=== PATIENT | female | born 1990 | race African-American/Black ===

== ENCOUNTER → 2017-06-05 | Outpatient (CLI) | payer BC ==
[~2017-06-05] MED LIST: BCP
== END ==
LOC: COL.RAD 09:43
DX: S83.512A Sprain of anterior cruciate ligament of left knee, initial encounter (principal); S82.142A Displaced bicondylar fracture of left tibia, initial encounter for closed fracture; M25.462 Effusion, left knee; S86.812A Strain of other muscle(s) and tendon(s) at lower leg level, left leg, initial encounter

== ENCOUNTER 2023-12-14 18:08 | Inpatient (IN) | payer OTHER ==
[2023-12-13 22:30] VITALS: BP 105/57; PULSE 82
[~2023-12-14] VITALS: Ht 160 cm; Wt 80.5 kg
[2023-12-14] VITALS (8 sets, daily range): BP systolic 105–148; BP diastolic 53–78; PULSE 67–91; TEMP 98.2–98.4
--- NOTE | 2023-12-14 18:20 | NUR ---
1820 PT AMBULATORY TO UNIT WITH SIGNIFICANT OTHER. STOPPED THREE TIMES ON THE WAY DUE TO CTX. PT CHANGED INTO GOWN AND COMFORTABLE IN BED. THIS RN AT BEDSIDE TO PLACE TOCO AND EFM. PT VISIBLY UNCOMFORTABLE DURING A CTX. EFM TRACING CAT I. TRACING CTX EVERY 3-4 MINUTES. PT REPORTS COMING FOR CTX AND REPORTS FEELING THEM EVERY 3 MINUTES. PT REPORTS FEELING BABY MOVE TODAY. PT DENIES LOF AND DENIES VAGINAL BLEEDING. SVE BY THIS RN. /2. 1830[facility] AND CARE ASSUMED.
[2023-12-14] MEDS ORDERED: Penicillin G Potassium 5,000,000 UNITS in NS 100 ML IV ONE (18:45)
[2023-12-14] MEDS ORDERED: LR & Oxytocin 500 ML IV SCH (18:45)
[2023-12-14] MEDS ORDERED: LR 1,000 ML IV SCH (18:45)
[2023-12-14] MEDS ORDERED: PRENATAL TABLET PO (18:51)
[2023-12-14 19:01] LABS: HEMOGLOBIN 13.1 g/dl (12.5-16.0); MEAN CELL VOLUME 91 fl (80.0-100.0); MEAN CORPUSCULAR HEMOGLOBIN 31 pg (27-31); MEAN CORPUSCULAR HGB CONC 35 g/dl (33.0-37.0); MEAN PLATELET VOLUME 11.3 fl (7.4-10.4); PLATELET COUNT 262 K/mm3 (130-400); RED BLOOD COUNT 4.19 M/mm3 (4.10-5.30); REDCELL DISTRIBUTION WIDTH-CV 13.2 % (11.5-14.5)
[2023-12-14 19:30] LABS: ALBUMIN 3.1 gm/dL (3.5-5.0); BILIRUBIN,TOTAL 0.4 mg/dL (0.2-1.2); CALCIUM 9.9 mg/dL (8.4-10.2); CREATININE, serum 0.73 mg/dL (0.57-1.11); POTASSIUM 4.2 mmol/L (3.5-4.5); TOTAL PROTEIN 7.3 gm/dL (6.2-8.1)
[2023-12-14 19:49] LABS: BAND 9 % (0-10); LYMPHOCYTE 6 % (20.0-51.0); NEUTROPHILS 83 % (42.0-75.2); PLATELET ESTIMATE NORMAL (NORMAL)
--- NOTE | 2023-12-14 20:45 | NUR ---
PT REQUESTING INFORMATION R/T EPIDUAL. EDUCATION PROVIDED. PT AND SPOUSE VERBALIZE UNDERSTANDING. QUESTIONS ANSWERED. PT REQUEST TIME TO DISCUSS WITH SPOUSE.
[2023-12-14] MEDS ORDERED: ROPivacaine PF 0.2% 200 ML IV ONE (21:10)
--- NOTE | 2023-12-14 21:30 | NUR ---
2054: PATIENT REQUEST EPIDURAL. 2055: ANES NOTIFIED OF PT REQUEST 2109: IV FLUID BOLUS STARTED 2113: Shani MANLEY CRUSHED STONE GRADER AT [facility]. PT POSITIONED INTO SITTING POSITION WITH SPOUSE FOR SUPPORT. 2118: TIME OUT FOR EPIDURAL PLACEMENT 2126: SINGLE SHOT BY Shani MANLEY CRNA 2127: EPIDURAL CATH PLACED 2128: EPIDURAL TEST DOSE 2129: EPIDURAL PUMP STARTED.
[2023-12-14] MEDS ORDERED: ePHEDrine 50 MG/10 ML VIAL IV PRN (21:45)
[2023-12-14] MEDS ORDERED: Ondansetron 4 MG/2 ML VIAL IV PRN (21:45)
[2023-12-14] MEDS ORDERED: diphenhydrAMINE 25 MG CAP PO PRN (21:45)
[2023-12-14] MEDS ORDERED: diphenhydrAMINE 50 MG/ML 1 ML VIAL IV PRN (21:45)
[2023-12-14] MEDS ORDERED: Naloxone 0.4 MG/ML VIAL IV PRN (21:45)
[2023-12-14] MEDS ORDERED: Penicillin G Potassium 2,500,000 UNITS in NS 100 ML IV SCH (22:44)
--- NOTE | 2023-12-14 23:00 | NUR ---
SVE AND FSE PLACEMENT BY [place] [facility]. EDUCATED PROVIDED TO PATIENT PRIOR TO PLACEMENT. PT VERBALIZED UNDERSTANDING AND AGREED TO PROCEDURE.
[2023-12-14] MEDS ORDERED: ePHEDrine 50 MG/ML VIAL ONE (23:03)
[2023-12-15] VITALS (44 sets, daily range): BP systolic 103–150; BP diastolic 53–86; PULSE 71–140; TEMP 98.1–99
[2023-12-15] MEDS ORDERED: LR & Oxytocin 500 ML IV SCH (00:15)
--- NOTE | 2023-12-15 06:07 | NUR ---
FSE OFF DURING SVE BY DR. JENKINS. FSE #[address] JENKINS @ 0607.
[2023-12-15] MEDS ORDERED: miSOPROStol 200 MCG TAB RC ONE (09:00)
--- NOTE | 2023-12-15 09:21 | NUR ---
RN BEDSIDE; DISCUSSES POC WITH PT. PT VERBALIZES UNDERSTANDING AND HAS NO QUESTIONS AT THIS TIME
--- NOTE | 2023-12-15 09:28 | NUR ---
0775 ALICE NIEVES CALLED AND NOTIFIED OF RECENT SVE, RN ABLE TO REDUCE ANT LIP OF CERVIX WHEN PT PUSHING. ORDERS TO START PUSHING WITH PT AT THIS TIME AND MD STATES HE IS ON WAY TO HOSPITAL. RN RBVO. 0175 PT UPDATED ON POC, LAW CARE PROVIDED BY RN, PT IN [employer] [facility] [facility], NICOLE CATHETER REMOVED BY RN
--- NOTE | 2023-12-15 09:32 | NUR ---
RN REMAINS BEDSIDE ASSESSING STRIP AND PUSHING WITH PATIENT
--- NOTE | 2023-12-15 09:34 | NUR ---
0757 ALICE NIEVES BEDSIDE TO ASSESS PUSHING EFFORTS. 0800 ALICE NIEVES OUT OF ROOM; REMAINS ON UNIT
--- NOTE | 2023-12-15 09:37 | NUR ---
0829 RN CALLS DELIVERY TEAM AND TO ROOM FOR DELIVERY 0832 ALICE NIEVES BEDSIDE FOR DELIVERY 0838 OF VIABLE FEMALE
--- NOTE | 2023-12-15 09:46 | NUR ---
ALICE NIEVES, RNX3 BEDSIDE FOR SPONTANEOUS VAGINAL DELIVERY OF VIABLE INFANT AT 0838.
--- NOTE | 2023-12-15 09:51 | NUR ---
LAW CARE PERFORMED BY RN
[2023-12-15] MEDS ORDERED: oxyCODONE 5 MG TAB PO PRN (10:30)
[2023-12-15] MEDS ORDERED: Loratadine 10 MG TAB PO PRN (10:30)
[2023-12-15] MEDS ORDERED: Magnes Hydrox (MOM) 80 MG/ML 30 ML CUP PO PRN (10:30)
[2023-12-15] MEDS ORDERED: Witch Hazel 50% Pads Bulk TUB TP PRN (10:30)
[2023-12-15] MEDS ORDERED: Measles/Mumps/Rubella Virus Vaccine Live w Diluent 0.5 ML VIAL SQ SCH (10:30)
[2023-12-15] MEDS ORDERED: Ibuprofen 800 MG TAB PO SCH (10:30)
[2023-12-15] MEDS ORDERED: Mag/Al Hydrox/Simeth Susp 30 ML CUP PO PRN (10:30)
[2023-12-15] MEDS ORDERED: Naloxone 0.4 MG/ML VIAL IV PRN (10:30)
[2023-12-15] MEDS ORDERED: Phenylephrine/Mineral Oil/Petrolatum 57 GM TUBE RC PRN (10:30)
--- NOTE | 2023-12-15 11:41 | NUR ---
RN USES SIT TO STAND TO TAKE PT TO BATHROOM. PT UNABLE TO VOID AT THIS TIME, LAW CARE PROVIDED BY RN AND GOWN CHANGED. PT MOVED TO WHEELCHAIR AND MOVED TO ROOM WITH SPOUSE AND RN
--- NOTE | 2023-12-15 11:44 | NUR ---
RN ORIENTS PT AND SPOUSE TO ROOM AND PROVIDES EDUCATION PACKET AND POSTPARUM EDUCATION. PT VERBALIZES UNDERSTANDING AND HAS NO QUESTIONS AT THIS TIME
--- NOTE | 2023-12-15 15:00 | NUR ---
CARE ASSUMED BY THIS RN FROM RUBIO BEE RN.
[2023-12-15] MEDS ORDERED: Sennosides/Docusate 8.6-50 MG TAB PO SCH (17:00)
[2023-12-15] MEDS ORDERED: MOTRIN 800800 MG/TAB PO (20:34)
[2023-12-15] MEDS ORDERED: traZODone 50 MG TAB PO PRN (21:00)
[2023-12-16 01:28] VITALS: BP 130/80; PULSE 73; TEMP 98.7
[2023-12-16] MEDS ORDERED: Acetaminophen 500 MG TAB PO PRN (08:30)
[2023-12-16 09:29] VITALS: BP 126/75; PULSE 73; TEMP 98.7
--- NOTE | 2023-12-16 19:35 | NUR ---
2039- DISCHARGE INSTRUCTIONS REVIEWED WITH PT AND SPOUSE. PT INSTRUCTED TO [facility] TO SCHEDULE 6 WEEK FOLLOW UP APPOINTMENT. UNDERSTANDING VERBALIZED CONCERNING FOLLOWUP AND WHEN TO CONTACT PHYSICIAN WITH CONCERNS/QUESTIONS. 1934- PT OFF UNIT VIA WHEELCHAIR WITH BABY IN ARMS, ACCOMPANIED BY SPOUSE AND Darren MURILLO, IMMIGRATION LAWYER.
[2023-12-17] MEDS ORDERED: Influenza Virus Vaccine, Quad '23-24 (6 MOS+) 0.5 ML SYRINGE IM SCH (09:00)
== END 2023-12-16 19:35 | disposition home or self-care (01) | DRG 806 ==
LOC: LDRO 18:08 → LDR 18:47 → OB 12-15 11:15
PROVIDERS: Obstetrics & Gynecology; ADMIT Obstetrics & Gynecology
PROC: 10E0XZZ Delivery of Products of Conception, External Approach (ICD-10-PCS; principal; 2023-12-15)
PROC: 0HQ9XZZ Repair Perineum Skin, External Approach (ICD-10-PCS; 2023-12-15)
DX: O48.0 Post-term pregnancy (principal); O41.03X0 Oligohydramnios, third trimester, not applicable or unspecified; Z37.0 Single live birth; Z3A.41 41 weeks gestation of pregnancy; O99.824 Streptococcus B carrier state complicating childbirth; O70.0 First degree perineal laceration during delivery; O36.5930 Maternal care for other known or suspected poor fetal growth, third trimester, not applicable or unspecified; O75.89 Other specified complications of labor and delivery; O76 Abnormality in fetal heart rate and rhythm complicating labor and delivery; Z85.841 Personal history of malignant neoplasm of brain
CPT/HCPCS: J2540; J2590; J2795; J7120

== ENCOUNTER → 2023-12-18 | Outpatient (CLI) | payer OTHER ==
[~2023-12-18] MED LIST changes: +MOTRIN 800800 MG/TAB PO; +PRENATAL TABLET PO
--- NOTE | 2023-12-18 15:48 | NUR ---
Pt, Katelyn Singh, presents to walk-in clinic with 3 day old baby girl, Norma Holguin, and FOB. Pt states she has sore nipples, latch trouble, is engorged, pumping concerns, and that Norma has lost weight. Norma was born on [birth year] and weighed 6# 15.8oz (3170 gms). Pt states she has not supplemented Norma but has pumped x1 for 3oz. She also states Norma has had adequate stools and voids despite only really latching on x3 in the last 24 hours. Today Norma weighs 6# 7.3oz (2928 gms) for a 7% weight loss. LC assists pt with improved position, support, algnment and compression of the breast to be able to get a full latch. Pt states that the nursing does not hurt, swallows are noted. Pt able to duplicate with little assist when LC removes baby for pt to practice. After the left side Norma had a weight gain of 2oz (56 ml). She is content and has a little milk dribble out of her mouth. Pt sets her pump up to express the non-nursed side and collects about 2 oz. Pt advised to nurse Norma using latch techniques. Let her nurse the first breast as long as there is quality work, offer second breast and if she does not latch to second breast pump as needed for comfort. Also reviewed management of engorgement. POC: BF ad mariam, pump as noted above. F/U: As desired with LC, as scheduled for a weight check in 3 days. Questions invited and answered.
== END ==
LOC: LAC 13:49
DX: Z39.1 Encounter for care and examination of lactating mother (principal); Z71.89 Other specified counseling

== ENCOUNTER → 2023-12-25 | Outpatient (CLI) | payer OTHER ==
--- NOTE | 2023-12-25 15:14 | NUR ---
Pt, Katelyn Singh, presents to walk-in clinic with 10 day old baby girl, Norma Holguin, and FOB. Pt desires follow up evaluation from their visit last week and has concerns about Norma choking and spitting at some feedings. Norma was born on [birth year] and weighed 6# 15.8oz (3169 gms). One week ago she weighed 6# 7.3oz. (2929 gms). Pt has continued to breastfeed Norma by the three hour range, she only nurses one breast at a time, but has qs voids and stools. Today Norma weighs 7# 3.2oz (3266 gms). After the left breast Norma had a weight gain of 3.5oz (98 gms). Per family request burping techniques reviewed, as well as pumping advice based on Norma only nursing one breast. POC: Continue BF ad mariam. F/U: As scheduled with physicians, as desired with this LC. Questions invited and answered.
== END ==
LOC: LAC 14:08
DX: Z39.1 Encounter for care and examination of lactating mother (principal); Z71.89 Other specified counseling